=== PATIENT | male | born 1965 | race Caucasian/White ===

== ENCOUNTER 2020-05-20 20:46 | Emergency (ER) | payer OTHER, SELFPAY ==
[2020-05-20] VITALS (12 sets, daily range): BP systolic 142–159; BP diastolic 76–89; PULSE 75–100; RESP 9–17; TEMP 36.7; O2SAT 88–97
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
[2020-05-20 21:19] LABS: Abs Immature Grans 0.02 10^3/uL (0.0-0.06); Absolute Basophil Count 0.06 10^3/uL (0.0-0.2); Absolute Eosinophil Count 0.12 10^3/uL (0.0-0.7); Absolute Lymphocyte Count 2.21 10^3/uL (1.2-3.4); Absolute Monocyte Count 0.61 10^3/uL (0.1-0.8); Absolute Neutrophil Count 4.67 10^3/uL (1.2-6.7); Basophils % 0.8; Eosinophils % 1.6; HCT 46.3 % (40.0-50.0); HGB 15.8 g/dL (13.5-17.5); Immature Grans % 0.3; Lymphocytes % 28.7; MCH 31.9 pg (27.0-33.0); MCHC 34.1 % (32.0-36.0); MCV 93.5 fL (80-95); MPV 9.6 fL (8.0-11.0); Monocytes % 7.9; Neutrophils % 60.7; Nucleated RBC 0 %; Platelet Count 272 10^3/uL (130-400); RBC 4.95 10^6/uL (4.36-5.78); RDW 11.1 % (11.8-14.1); RDW-SD 37.9 fL; WBC 7.69 10^3/uL (4.4-10.8)
--- NOTE | 2020-05-20 21:29 | NUR.NOTE ---
Nursing Note: pt arrives with wallet, checkbook, phone, glass case with no glasses. pans/long schrader, shoes, shirt and tshirt(cut w pts permission)
[2020-05-20] MEDS: Lactated Ringers 1,000 ML 150 ML IV (21:30)
[2020-05-20 21:31] LABS: ETHANOL BLOOD 118.5 mg/dL (<3); Lipase 84 U/L (73-393)
[2020-05-20 21:35] LABS: ALT 21 U/L (16-63); AST 17 U/L (15-37); Albumin 3.8 g/dL (3.4-5.0); Alkaline Phosphatase 54 U/L (46-116); Anion Gap 9.9 mmol/L (3-11); BUN 11 mg/dL (7-18); Bilirubin, Total 0.4 mg/dL (0.2-1.0); CO2 24.1 mmol/L (21.0-32.0); CREATININE 0.98 mg/dL (0.70-1.30); Calcium 8.7 mg/dL (8.5-10.1); Chloride 105 mmol/L (98-107); Glucose 104 mg/dL (74-106); Potassium 3.8 mmol/L (3.5-5.1); Sodium 139 mmol/L (136-145); Total Protein 7.4 g/dL (6.4-8.2)
[2020-05-20 21:39] LABS: Bilirubin Negative (Negative); Blood Negative (Negative); Clarity Clear (Clear); Glucose Negative (Negative); Ketones Negative (Negative); Leukocyte Esterase Negative (Negative); Nitrite Negative (Negative); Urobilinogen 0.2 EU/dL (Up TO 0.2); pH 6.5 (5-8)
[2020-05-20 21:50] LABS: *AMPHETAMINES SCREEN URINE Negative (Negative); *BARBITURATES SCREEN URINE Negative (Negative); *BENZODIAZEPINES SCREEN URINE Negative (Negative); Cannabinoids THC Negative (Negative); Cocaine Screen,Urine Negative (Negative); METHADONE URINE SCREEN Negative (Negative); OPIATES URINE SCREEN Negative (Negative)
[2020-05-20 21:51] LABS: Tricyclic Antidepressants Negative (Negative)
[2020-05-20] MEDS: Omnipaque 350 MG/ML 100 ML BTL IJ (22:17)
[2020-05-20] MEDS: Normal Saline - Diluent 50 ML VIAL IV (22:17)
[2020-05-20] MEDS: Normal Saline Flush 10 ML SYR IVP (22:18)
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
[2020-05-21] MEDS: Omnipaque 350 MG/ML 100 ML BTL IJ (02:02)
[2020-05-21] MEDS: Normal Saline Flush 10 ML SYR IVP (02:02)
[2020-05-21] MEDS: Normal Saline - Diluent 50 ML VIAL IV (02:03)
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
[2020-05-21] MEDS: Penicillin V POTASSIUM 500 MG TAB PO (03:27)
== END 2020-05-21 03:45 | disposition home or self-care (01) ==
PROVIDERS: Emergency Provider Emergency Medicine
DX: S01.511A Laceration without foreign body of lip, initial encounter (principal); S11.92XA Laceration with foreign body of unspecified part of neck, initial encounter; S02.5XXA Fracture of tooth (traumatic), initial encounter for closed fracture; S01.522A Laceration with foreign body of oral cavity, initial encounter; V48.5XXA Car driver injured in noncollision transport accident in traffic accident, initial encounter; R91.1 Solitary pulmonary nodule; F10.120 Alcohol abuse with intoxication, uncomplicated; Y90.5 Blood alcohol level of 100-119 mg/100 ml
CPT/HCPCS: 12001; 12011; 36415; 70491; 74177; 80053; 80307; 83690; 90471; 96360; 96361; 99281; 70450; 71260; 72125; 80320; 81003; 85025; J3490

== ENCOUNTER 2020-05-27 13:23 | Emergency (ER) | payer OTHER, SELFPAY ==
[2020-05-27 13:27] VITALS: BP 143/80; PULSE 78; RESP 18; TEMP 36.6; O2SAT 97
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
== END 2020-05-27 14:10 | disposition home or self-care (01) ==
PROVIDERS: Emergency Provider Physician Assistant
DX: S01.511D Laceration without foreign body of lip, subsequent encounter (principal); S11.9 Open wound of unspecified part of neck; V48.5XXD Car driver injured in noncollision transport accident in traffic accident, subsequent encounter; Z48.02 Encounter for removal of sutures

== ENCOUNTER 2020-11-23 15:13 | Outpatient (CLI) | payer OTHER, SELFPAY ==
--- NOTE | 2020-11-23 11:45 | DI.RAD_ITS ---
Exam(s) XR ELBOW RT COMPLETE EXAM: XR ELBOW RT COMPLETE CLINICAL HISTORY: Puncture wound of rt elbow, ? foreign body right elbow. TECHNIQUE: 2D digital imaging was performed. COMPARISON: No exams were available for comparison FINDINGS: No evidence of obvious acute fracture or joint effusion and there is no swelling of the olecranon bur sa. The radial head and appears unremarkable as does the capitellum. Degenerative changes nor loose intra-articular body seen. However, there does appear to be some irre gularity cortex at the medial epicondyle-insertion site of the common flexor tendon. This may be par tially avulsed versus sequelae of epicondylitis. On 1 image is also slight irregularity of the sancho x of the opposite-lateral epicondyle. IMPRESSION: Findings are probably consistent with epicondylitis. Correlation with site of tenderness is recommen ded. There is no elbow joint effusion evident. Also no swelling of the olecranon bursa. DATA REPOSITORY: RADIATION DOSE DELIVERED:
== END 2020-11-23 15:33 ==
PROVIDERS: Visit Provider Nurse Practitioner Family
DX: S51.031A Puncture wound without foreign body of right elbow, initial encounter (principal); X58.XXXA Exposure to other specified factors, initial encounter
CPT/HCPCS: 73080

== ENCOUNTER 2022-06-05 06:45 | Emergency (ER) | payer OTHER, SELFPAY ==
[2022-06-05 07:09] VITALS: BP 153/85; PULSE 64; RESP 18; TEMP 36.8; O2SAT 96
--- NOTE | 2022-06-05 07:26 | DI.RAD_ITS ---
Exam(s) XR HAND LT COMPLETE EXAM: XR HAND LT COMPLETE CLINICAL HISTORY: drilled through thenar eminence, r/o FB. TECHNIQUE: 2D digital imaging was performed of the left hand. Three views were obtained. AP, later al and oblique views were obtained. COMPARISON: No exams were available for comparison FINDINGS: BONES: No acute fracture is present. No bony destructive lesion is seen. JOINTS: No dislocation present. SOFT TISSUE: No radiopaque foreign body. There are foci of air in the soft tissues between the 1st a nd 2nd metacarpals. IMPRESSION: Soft tissue gas at the thenar eminence but no radiopaque foreign body is identified. DATA REPOSITORY: RADIATION DOSE DELIVERED:
--- NOTE | 2022-06-05 07:39 | ED.GENADUL_ITS ---
Discharge Plan Disposition Patient Disposition: Home Condition: Good Discharge Details Clinical Impression: Puncture wound of left hand Primary Care Provider: Unknown,Unknown ED Provider: Durga Veras Home Meds and New Rx's Prescriptions: New cephalexin 500 mg capsule 500 mg PO QID 7 Days Qty: 28 0RF No Action ibuprofen 800 mg tablet 800 mg PO TID PRN (Reason: pain) Qty: 21 0RF cyclobenzaprine 5 mg tablet 5 mg PO QHS PRN (Reason: muscle spasm) Qty: 14 0RF Rx Instructions: dos not take 06/05/22 multivitamin [Daily Multi-Vitamin] 1 EACH tablet 1 ea PO DAILY tadalafil 20 mg Tablet 20 mg PO DAILY Discharge Instructions Instructions: Puncture Wound (ED) Additional Instructions: At this time there is no evidence of foreign body on the x-ray. Please take the antibiotic as directed to prevent any infection. Please return in the next 7 to 10 days to have the sutures removed. If you notice any redness, drainage, discharge please return immediately for reassessment. This may represent infection. If you notice any worsening of your symptoms, or any new symptoms such as vomiting, diarrhea, fever, chills, shortness of breath, chest pain, numbness, weakness, or fainting , please return immediately to the emergency department for reevaluation. Please follow up with your primary care provider as soon as possible for reassessment and reevaluation. As always, it was a pleasure participating in your medical care today. Medical Decision Making This is a 57-year-old male who is right-hand dominant who presents with a drill injury to his left hand. Patient states that he was working his drill and the drill bit went right through his thenar eminence on his left hand. He is uncertain if there was any wood particulate in that area but he was able to pull out 1 splinter. He denies any numbness or tingling. Tetanus was updated in 2020, he denies any other complaints at this time. No other modifying factors. Physical exam demonstrates a small puncture wound, excellent movement for the thenar eminence, no numbness or tingling, no vascular compromise. Patient shows no signs of deficit. The area was cleaned and irrigated with chlorhexidine. Patient tolerated this well. 2 simple suture was placed. Patient will be started on Keflex out of an abundance of precaution for potential infection. I have extensively reviewed the treatment plan and discharge instructions with the patient. I have addressed all patient concerns at this time. The patient was made aware of what symptoms to monitor for that would warrant a return to the emergency department. Discussed the plan with the patient, they demonstrate verbal understanding and agreement with our assessment and plan at this time. The documentation in this chart was dictated using tibdit dictation software. Please excuse any dictation errors. FINDINGS: Bones/joints: No acute fracture, dislocation or significant degenerative changes. Soft tissues: Soft tissue swelling and gas at thenar eminence, without discrete radiopaque foreign body. IMPRESSION: Soft tissue injury at thenar eminence, without discrete radiopaque foreign body or acute osseous injury. Thank you for allowing us to participate in the care of your patient. Dictated and Authenticated by: Tara Galeano MD 06/05/2022 7:44 AM Eastern Time ([place] & [place]) HPI General Date/Time Provider Initiated Documentation: 06/05/22 06:57 . HPI Narrative: This is a 57-year-old male who is right-hand dominant who presents with a drill injury to his left hand. Patient states that he was working his drill and the drill bit went right through his thenar eminence on his left hand. He is uncertain if there was any wood particulate in that area but he was able to pull out 1 splinter. He denies any numbness or tingling. Tetanus was upd ated in 2020, he denies any other complaints at this time. No other modifying factors. Related Data Home Medications Medication Instructions Recorded Confirmed multivitamin (Daily Multi-Vitamin 1 ea PO DAILY 03/04/17 06/05/22 tablet) cyclobenzaprine 5 mg tablet 5 mg PO QHS PRN muscle spasm #14 08/01/21 08/08/21 tabs ibuprofen 800 mg tablet 800 mg PO TID PRN pain #21 tabs 08/01/21 06/05/22 cephalexin 500 mg capsule 500 mg PO QID 7 days #28 caps 06/05/22 tadalafil 20 mg tablet 20 mg PO DAILY 06/05/22 06/05/22 Previous Rx's Medication Instructions Recorded cyclobenzaprine 5 mg tablet 5 mg PO QHS PRN muscle spasm #14 08/01/21 tabs ibuprofen 800 mg tablet 800 mg PO TID PRN pain #21 tabs 08/01/21 cephalexin 500 mg capsule 500 mg PO QID 7 days #28 caps 06/05/22 Allergies Allergy/AdvReac Type Severity Reaction Status Date / Time No Known Allergies Allergy Verified 06/05/22 07:11 General Stated Complaint: Laceration MYRNA: 4 Review of Systems All systems reviewed & are unremarkable except as noted in HPI and below PFSH All Active Problems (Updated 06/05/22 @ 07:47 by Durga Veras DO) Puncture wound of left hand (Acute) Lumbar strain (Acute) Puncture wound of elbow (Acute) Medical History (Updated 06/05/22 @ 07:47 by Durga Veras DO) Bilateral inguinal hernia Depression Erectile dysfunction Recurrent inguinal hernia unilateral Vertigo Surgical History History of left inguinal hernia repair December 2016, Dr. 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 3.ENT: Atraumatic external nose and ears. Moist MM. Neck: Symmetric, trachea midline, No thyromegaly. 4.CVS: +S1/S2, No murmurs or gallops. Peripheral pulses 2+ and equal in all extremities. Brisk capillary refill in all extremities. 5.RESP: Unlabored respiratory effort. Clear to auscultation bilaterally. No wheezes rales or rhonchi 6.GI: Soft, Nontender/Nondistended, No hepatosplenomegaly. No guarding or rebound. 7.MSK: Normocephalic, left hand demonstrates a drill bit sized puncture wound in the thenar eminence. Patient demonstrates excellent movement for flexion, ex tension, abduction and adduction of the thumb. No deficits. Brisk capillary refill distally. 8.Skin: Warm, Dry. Small puncture wound shaped laceration in the thenar eminence. No active bleeding. 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 Sensation grossly intact, no focal neurologic deficits. 10.Psych: (AAO) x3. Appropriate mood and affect Course Vital Signs Vital signs: Vital Signs Temperature 36.8 C 06/05/22 07:09 Pulse 64 06/05/22 07:09 Respiratory Rate 18 06/05/22 07:09 Blood Pressure 153/85 H 06/05/22 07:09 Pulse Oximetry 96 06/05/22 07:09 Temperature 36.8 C 06/05/22 07:09 Temperature Source Temporal Artery Scan 06/05/22 07:09 Pulse 64 06/05/22 07:09 Respiratory Rate 18 06/05/22 07:09 Respiratory Effort Non-Labored 06/05/22 07:14 Blood Pressure 153/85 H 06/05/22 07:09 Blood Pressure Position Sitting 06/05/22 07:09 Pulse Oximetry 96 06/05/22 07:09 Oxygen Delivery Method Room Air 06/05/22 07:09 Oxygen Flow Rate 0 06/05/22 07:09 Procedures Laceration Laceration 1: Site: hand Side (If applicable): left Size (cm): 1 Description: linear Depth: simple, single layer Local Anesthetic: Bupivicaine 0.5% Amount of anesthesia used (mL): 4 Pre-repair: wound explored, irrigated extensively and deep structures intact Skin layer closed with: nylon Size (cm): 5-0 Number of sutures: 2 PAWSS Have you Been Recently Intoxicated or Drunk Within the Last 30 days?: No Have you Ever Experienced Previous Episodes of Alcohol Withdrawal?: No Have you ever Experienced Withdrawal Seizures?: No Have you ever Experienced Delirium Tremens(DT)s?: No Have you ever undergone Alcohol Rehabilitation Treatment (i.e, inpt ot outpatient treatment programs)?: No Have you ever Experienced Blackouts?: No Have you ever Combined Alcohol with other Downers within the last 90 days?: No Have you ever Combined Alcohol with any other Substance of Abuse during the last 90 days?: No Positive Blood Alcohol level on Presentation? [PCS.BAL]: No Evidence of Increased Autonomic Activity (i.e. HR>120, tremor, sweating, agitation, nausea)?: No Result: 0
--- NOTE | 2022-06-05 07:45 | DI.VRAD_ITS ---
PROCEDURE INFORMATION: Exam: XR Left Hand Exam date and time: 06/05/2022 7:24 AM Age: 57 years old Clinical indication: Injury or trauma; Other: Drilled thru thumb; Puncture; Hand; Left; Patient HX: Drilled thruthenar eminence, R/O fb TECHNIQUE: Imaging protocol: Radiologic exam of the Left hand. Views: 3 or more views. COMPARISON: No relevant prior studies available. FINDINGS: Bones/joints: No acute fracture, dislocation or significant degenerative changes. Soft tissues: Soft tissue swelling and gas at thenar eminence, without discrete radiopaque foreign body. IMPRESSION: Soft tissue injury at thenar eminence, without discrete radiopaque foreign body or acute osseous injury. Dictated and Authenticated by: Tara Galeano MD. Ordering:CORDELL Calixto MD
[2022-06-05] MEDS: Cephalexin 500 MG CAP, 4 CAPS/BTL PO (08:13)
== END 2022-06-05 08:20 | disposition home or self-care (01) ==
PROVIDERS: Emergency Provider Student in an Organized Health Care Education/Training Program
DX: S61.432A Puncture wound without foreign body of left hand, initial encounter (principal); Y99.0 Civilian activity done for income or pay; W29.8XXA Contact with other powered hand tools and household machinery, initial encounter
CPT/HCPCS: 12001; 99283; 73130; 99284

== ENCOUNTER 2022-06-15 10:56 | Emergency (ER) | payer SELFPAY ==
[2022-06-15 11:00] VITALS: BP 153/72; PULSE 80; RESP 18; TEMP 36.8; O2SAT 98
--- NOTE | 2022-06-15 11:06 | ED.GENADUL_ITS ---
Discharge Plan Discharge Details Chief Complaint: SutureRem Primary Care Provider: Unknown,Unknown ED Provider: Trev Adams [place] Meds and New Rx's Prescriptions: No Action ibuprofen 800 mg tablet 800 mg PO TID PRN (Reason: pain) Qty: 21 0RF cyclobenzaprine 5 mg tablet 5 mg PO QHS PRN (Reason: muscle spasm) Qty: 14 0RF Rx Instructions: does not take 06/05/22 multivitamin [Daily Multi-Vitamin] 1 EACH tablet 1 ea PO DAILY tadalafil 20 mg Tablet 20 mg PO DAILY HPI General Date/Time Provider Initiated Documentation: 06/15/22 11:05 . Information obtained by: patient . Related Data Home Medications Medication Instructions Recorded Confirmed multivitamin (Daily Multi-Vitamin 1 ea PO DAILY 03/04/17 06/15/22 tablet) cyclobenzaprine 5 mg tablet 5 mg PO QHS PRN muscle spasm #14 08/01/21 06/15/22 tabs ibuprofen 800 mg tablet 800 mg PO TID PRN pain #21 tabs 08/01/21 06/15/22 tadalafil 20 mg tablet 20 mg PO DAILY 06/05/22 06/15/22 Previous Rx's Medication Instructions Recorded cyclobenzaprine 5 mg tablet 5 mg PO QHS PRN muscle spasm #14 08/01/21 tabs ibuprofen 800 mg tablet 800 mg PO TID PRN pain #21 tabs 08/01/21 Allergies Allergy/AdvReac Type Severity Reaction Status Date / Time No Known Allergies Allergy Verified 06/15/22 11:03 General Stated Complaint: SutureRem MYRNA: 4 PFSH All Active Problems (Updated 06/05/22 @ 07:47 by Durga Veras DO) Puncture wound of left hand (Acute) Lumbar strain (Acute) Puncture wound of elbow (Acute) Medical History (Updated 06/05/22 @ 07:47 by Durga Veras DO) Bilateral inguinal hernia Depression Erectile dysfunction Recurrent inguinal hernia unilateral Vertigo Surgical History History of left inguinal hernia repair December 2016, Dr. 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 Social History Smoking/Tobacco Use Status: Former Tobacco Use Quit Date: 10/05/15 Pack-years: 6 Smoking risk assessment performed?: Yes Alcohol Intake: current Alcohol Intake frequency: a few times a week Drug use: Rarely Housing: apartment Number of Children: 2 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 Seatbelt use: always Do you feel safe at home: Yes Do you feel safe in your relationship?: Yes Course Vital Signs Vital signs: Vital Signs Temperature 98.2 F 06/15/22 11:00 Pulse 80 06/15/22 11:00 Respiratory Rate 18 06/15/22 11:00 Blood Pressure 153/72 H 06/15/22 11:00 Pulse Oximetry 98 06/15/22 11:00 Temperature 98.2 F 06/15/22 11:00 Temperature Source Temporal Artery Scan 06/15/22 11:00 Pulse 80 06/15/22 11:00 Respiratory Rate 18 06/15/22 11:00 Respiratory Effort Normal, Non-Labored 06/15/22 11:03 Blood Pressure 153/72 H 06/15/22 11:00 Blood Pressure Position Supine 06/15/22 11:00 Pulse Oximetry 98 06/15/22 11:00 Oxygen Delivery Method Room Air 06/15/22 11:00 Oxygen Flow Rate 0 06/15/22 11:00 PAWSS Have you Been Recently Intoxicated or Drunk Within the Last 30 days?: No Have you Ever Experienced Previous Episodes of Alcohol Withdrawal?: No Have you ever Experienced Withdrawal Seizures?: No Have you ever Experienced Delirium Tremens(DT)s?: No Have you ever undergone Alcohol Rehabilitation Treatment (i.e, inpt ot outpatient treatment programs)?: No Have you ever Experienced Blackouts?: No Have you ever Combined Alcohol with other Downers within the last 90 days?: No Have you ever Combined Alcohol with any other Substance of Abuse during the last 90 days?: No Positive Blood Alcohol level on Presentation? [PCS.BAL]: No Evidence of Increased Autonomic Activity (i.e. HR>120, tremor, sweating, agitation, nausea)?: No Result: 0
--- NOTE | 2022-06-15 11:08 | W.EDPROG ---
Date of service: 06/15/22 Time of Service: 11:18 Medical Decision Making Patient presenting to ED for removal of stitches that had been placed in his left hand on the . No evidence of infection with no erythema, swelling, tenderness. 2 sutures removed. Skin did pull apart however underlying structures intact and no evidence of infection. Skin actually fairly callused in this area. Steri-Strips applied. Patient instructed to keep area covered and continue local wound care. Steri-Strips will fall off over time. Continue to watch for any signs of infection. Return if any concerns or problems. Exam Narrative Exam Narrative: Const: WDWN male in NAD. HEENT: NC/AT. Normal facial exam. Eyes: Normal conjunctiva and sclera. Neck: Supple. Trachea midline. Lungs: Normal respiratory effort. Neuro: A+O x 3. Normal speech, mentation, gait. Cranial nerves II - XII grossly intact. No gross motor or sensory deficit. Ext: Left hand normal ROM, strength and without tenderness. Skin: Skin edges did pull apart slightly after sutures removed from wound. No infection and deep structures in tact. Narrative Patient presenting to ED for suture removal. Sutures placed on the . Patient without complaint of. Discharge Plan Disposition Patient Disposition: Home Discharge Details Clinical Impression: Encounter for removal of sutures Primary Care Provider: Unknown,Unknown ED Provider: Trev Adams [place] and New Rx's Prescriptions: No Action ibuprofen 800 mg tablet 800 mg PO TID PRN (Reason: pain) Qty: 21 0RF cyclobenzaprine 5 mg tablet 5 mg PO QHS PRN (Reason: muscle spasm) Qty: 14 0RF Rx Instructions: does not take 06/05/22 multivitamin [Daily Multi-Vitamin] 1 EACH tablet 1 ea PO DAILY tadalafil 20 mg Tablet 20 mg PO DAILY Discharge Instructions Additional Instructions: Sutures were removed. No evidence of infection. Wound edges not completely healed so Steri-Strips applied. These will come off on their own over time. Keep covered. Continue to keep clean and dry. Watch for signs of infection and return if any increase swelling, redness, drainage.
== END 2022-06-15 11:26 | disposition home or self-care (01) ==
LOC: ER 11:26
PROVIDERS: Emergency Provider Emergency Medicine
DX: Z48.02 Encounter for removal of sutures (principal); S61.412D Laceration without foreign body of left hand, subsequent encounter; X58.XXXD Exposure to other specified factors, subsequent encounter

== ENCOUNTER → 2022-12-25 12:27 | Outpatient (CLI) | payer SELFPAY ==
--- NOTE | 2022-12-25 14:00 | DI.RAD_ITS ---
Exam(s) XR KNEE RT 4V AP,LAT,WARREN,PAT EXAM: XR KNEE RT 4V AP,LAT,WARREN,PAT CLINICAL HISTORY: Right knee pain,oa,m19.90. TECHNIQUE: 2D digital imaging was performed. COMPARISON: No exams were available for comparison FINDINGS: 3 views Evidence of acute fracture but the appears to be a small amount of increased joint fluid. Bone densi ty normal. No osseous lesions. No joint space narrowing. No osteophytes. IMPRESSION: No acute osseous findings. Possible small joint effusion DATA REPOSITORY: RADIATION DOSE DELIVERED:
== END ==
PROVIDERS: Visit Provider Physician Assistant Medical
DX: M25.561 Pain in right knee (principal)
CPT/HCPCS: 73564

== ENCOUNTER → 2023-02-18 16:36 | Outpatient (CLI) | payer MEDICAID, SELFPAY ==
--- NOTE | 2023-02-18 12:45 | DI.US_ITS ---
Exam(s) US LOWER EXTREMITY VENOUS LT EXAM: US LOWER EXTREMITY VENOUS LT CLINICAL HISTORY: Pain of lt calf, M79.662, evaluate dvt TECHNIQUE: Left lower extremity venous ultrasound performed using grayscale, color-flow, and spectra l Doppler analysis. COMPARISON: No exams were available for comparison FINDINGS: The left common femoral, femoral and popliteal veins demonstrate normal compressibility, augmentation , and color Doppler. The posterior tibial and peroneal veins are patent. The saphenofemoral junction is unremarkable. There is a 1.8 x 0.9 x 2.1 cm fluid collection in the popliteal fossa consistent w ith a Mcbride cyst. There is also a fluid collection extending into the posterior calf which is connec padmini to this fluid collection. It measures 20.2 cm in length. This may reflect a ruptured popliteal cyst. The soft tissues are unremarkable. IMPRESSION: 1. No evidence of a left lower extremity DVT. 2. Findings suspicious for ruptured popliteal cyst. Hematoma cannot be entirely excluded. Please co rrelate clinically. DATA REPOSITORY:
== END ==
PROVIDERS: Visit Provider Nurse Practitioner Family
DX: M79.662 Pain in left lower leg (principal)
CPT/HCPCS: 93971

== ENCOUNTER 2024-01-14 19:19 | Emergency (ER) | payer MEDICAID, SELFPAY ==
[2024-01-14 19:22] VITALS: BP 160/81; PULSE 82; RESP 15; TEMP 36; O2SAT 95
--- NOTE | 2024-01-14 20:13 | DI.RAD_ITS ---
Exam(s) XR FINGER RT INDEX EXAM: XR FINGER RT INDEX CLINICAL HISTORY: Shut in car door. TECHNIQUE: 2D digital imaging was performed. Three views. COMPARISON: CR,XR XR HAND LT COMPLETE from 06/05/2022 FINDINGS: BONES: No acute fracture is present. No bony destructive lesion is seen. JOINTS: No dislocation present. SOFT TISSUE: Normal. IMPRESSION: No evidence of acute fracture, dislocation, or subluxation. DATA REPOSITORY: RADIATION DOSE DELIVERED:
--- NOTE | 2024-01-14 20:28 | W.ED.GENAD ---
Discharge Plan Disposition Patient Disposition: Home Condition: Stable Discharge Details Clinical Impression: Contusion of right index finger without damage to nail, initial encounter Primary Care Provider: None,None ED Provider: Kayla Batista Home Meds and New Rx's Prescriptions: No Action ibuprofen 800 mg tablet 800 mg PO TID PRN (Reason: pain) Qty: 21 0RF multivitamin [Daily Multi-Vitamin] 1 EACH tablet 1 ea PO DAILY tadalafil 20 mg Tablet 20 mg PO DAILY Discharge Instructions Instructions: Minor Contusion ED Additional Instructions: You are seen in the emergency department for a finger injury, and had an x-ray imaging performed that did not show any fracture or dislocation. You likely have a bad bruise or contusion, should use Tylenol and ibuprofen for management of pain, and wear splint as needed for comfort when you are up and about. Please follow-up with your primary care provider in the next few days to discuss this visit and any symptoms that change, worsen, or persist. Thank you for allowing us to be part of your care. HPI General Mode of arrival: ambulatory. Date/Time Provider Initiated Documentation: 01/14/24 19:27. Limitations to Documentation: no limitations. Information obtained by: patient and old records reviewed. HPI Narrative: HPI: This is a 58-year-old male patient without significant past medical history presenting for evaluation of a right finger injury. About an hour ago the patient was in his normal state of health and accidentally slammed his pointer finger in the door of his truck while closing it. This is an isolated injury, the patient did not injure any other part of his body. States that he has not tried any medications in the outpatient environment for pain management. Denies sensory deficit, is able to bend the finger but has pain when doing so, and noted swelling of the proximal phalanx. Exam: Gen: Awake and alert, in no apparent distress HEENT: Non-icteric sclera Neck: Supple Lungs: No apparent respiratory distress, normal respiratory effort. CV: Appears well perfused Abdomen: Non-distended MSK: Moves 4 extremities without apparent limitation in ROM. The patient's right second digit has swelling and ecchymosis over the proximal phalanx, no overlying skin breaks, range of motion decreased by pain. Nailbed is unaffected, no anatomical snuffbox tenderness on the affected right hand. Skin: Visualized skin without rashes, cyanosis. Neuro: Normal Gait, no obvious focal deficits or facial asymmetry. Speaks in full, clear sentences. Preserved sensation and neurovascular function of the right hand. Psych: Appropriate for situation. MDM: In brief, this is a 58-year-old male patient presenting for evaluation of a finger that was slammed in a car door. My differential includes but is not limited to fracture, dislocation, contusion, certainly considered ligamentous injury though I am reassured by the patient's ability to bend his finger against resistance. The patient at this time is declining medications for management of pain but understands he can use Tylenol, ibuprofen, and ice at home. We will obtain x-ray imaging of the affected right second digit. ED Course: I independently interpreted the patient's x-ray imaging, which shows no evidence of fracture, dislocation, or other abnormality. I did provide the patient with a metal splint for comfort, recommended Tylenol and ibuprofen, and ice for swelling. I am reassured given the patient's intact function and sensation against ligamentous and neurovascular injury. At this time, the patient has had a full medical evaluation and is safe for discharge to home. They are hemodynamically stable, ambulatory, and tolerating PO. They are understanding of the follow-up plan and return precautions. They left our facility without incident. Kayla Batista MD Related Data Home Medications ?Medication ?Instructions ?Recorded ?Confirmed multivitamin (Daily Multi-Vitamin 1 ea PO DAILY 03/04/17 12/25/22 tablet) ibuprofen 800 mg tablet 800 mg PO TID PRN pain #21 tabs 08/01/21 12/25/22 tadalafil 20 mg tablet 20 mg PO DAILY 06/05/22 12/25/22 Previous Rx's ?Medication ?Instructions ?Recorded ibuprofen 800 mg tablet 800 mg PO TID PRN pain #21 tabs 08/01/21 Allergies Allergy/AdvReac Type Severity Reaction Status Date / Time No Known Allergies Allergy Verified 02/18/23 11:44 General Stated Complaint: Orthopedic MYRNA: 4 Course Vital Signs Vital signs: Vital Signs Temperature 36.0 C L 01/14/24 19:22 Pulse 82 01/14/24 19:22 Respiratory Rate 15 01/14/24 19:22 Blood Pressure 160/81 H 01/14/24 19:22 Pulse Oximetry 95 01/14/24 19:22 Temperature 36.0 C L 01/14/24 19:22 Pulse 82 01/14/24 19:22 Respiratory Rate 15 01/14/24 19:22 Respiratory Effort Normal 01/14/24 19:25 Blood Pressure 160/81 H 01/14/24 19:22 Blood Pressure Position Sitting 01/14/24 19:22 Pulse Oximetry 95 01/14/24 19:22 Oxygen Delivery Method Room Air 01/14/24 19:22 Oxygen Flow Rate 0 01/14/24 19:22 Pain Level 4 01/14/24 19:25 Medical Decision Making Quality:SDOH Health Related Social Needs: No Data to Display PFSH All Active Problems (Updated 01/14/24 @ 22:01 by Kayla Batista MD) Contusion of right index finger without damage to nail, initial encounter (Acute) Lumbar strain (Acute) Puncture wound of elbow (Acute) Medical History (Updated 01/14/24 @ 22:01 by Kayla Batista MD) Bilateral inguinal hernia Vertigo Depression Erectile dysfunction Recurrent inguinal hernia unilateral Surgical History History of left inguinal hernia repair December 2016, Dr. 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
--- NOTE | 2024-01-14 21:45 | DI.VRAD_ITS ---
PROCEDURE INFORMATION: Exam: XR Right Finger(s) Exam date and time: 01/14/2024 8:11 PM Age: 58 years old Clinical indication: Other: Shut in car door TECHNIQUE: Imaging protocol: Radiologic exam of the right fingers. Views: Minimum 2 views. COMPARISON: CR XR ELBOW RT COMPLETE 11/23/2020 12:12 PM FINDINGS: Bones/joints: Normal. Soft tissues: Normal. IMPRESSION: No acute findings. Dictated and Authenticated by: Jone Gustafson MD. Ordering:MARIA ISABEL Gifford MD
[2024-01-14 22:04] VITALS: BP 148/72; PULSE 72; RESP 16; TEMP 37; O2SAT 99
== END 2024-01-14 22:04 | disposition home or self-care (01) ==
PROVIDERS: Emergency Provider Emergency Medicine
DX: S60.021A Contusion of right index finger without damage to nail, initial encounter (principal); V48.4XXA Person boarding or alighting a car injured in noncollision transport accident, initial encounter; Z87.891 Personal history of nicotine dependence
CPT/HCPCS: 99283; 73140